=== PATIENT | female | born 1935 | race Caucasian/White ===

== ENCOUNTER 2019-05-07 | Inpatient (IN) | payer MEDICARE, BC | END 2019-05-10 16:13 | disposition home or self-care (01) | DRG 152 | PROVIDERS: ADMIT Hospitalist | CPT/HCPCS: 36415; 71046; 80048; 80061; 81001; 83735; 84484; 85025; 85610; 85730; 87502; 93005; 93306; 96361; 96365; 96375; 96376; 99285 ==